=== PATIENT | female | born 2000 | race Caucasian/White ===

== ENCOUNTER 2023-03-05 09:02 | Day surgery (SDC) | payer OTHER ==
[~2023-03-05] VITALS: Ht 167.6 cm; Wt 113.9 kg
[2023-03-05] MEDS ORDERED: diphenhydrAMINE 50 MG/ML VIAL ONE (09:56)
[2023-03-05] MEDS ORDERED: MIDAZOLAM 5 MG/5 ML VIAL ONE (09:57)
[2023-03-05] MEDS ORDERED: fentaNYL citrate 0.05 MG/ML VIAL ONE (09:57)
[2023-03-05] MEDS ORDERED: diphenhydrAMINE 50 MG/ML VIAL IVP ONE (10:55)
[2023-03-05] MEDS ORDERED: MIDAZOLAM 2 MG/2 ML VIAL IVP ONE (10:55)
[2023-03-05] MEDS ORDERED: fentaNYL citrate 0.05 MG/ML VIAL IVP ONE (10:55)
== END 2023-03-05 11:00 | disposition home or self-care (01) ==
LOC: MMU 09:02 → MDS 09:02
PROVIDERS: ATTEND Internal Medicine Gastroenterology
DX: R10.13 Epigastric pain (principal); K31.7 Polyp of stomach and duodenum; J45.909 Unspecified asthma, uncomplicated; F32.A Depression, unspecified; E03.9 Hypothyroidism, unspecified; Z80.0 Family history of malignant neoplasm of digestive organs; Z79.899 Other long term (current) drug therapy
CPT/HCPCS: 43239; J1200; J2250; J3010; 88305; 88312; 88313; 88342